=== PATIENT | female | born 1990 | race Caucasian/White ===

== ENCOUNTER 2019-03-30 17:45 | Emergency (ER) | payer MEDICAID, OTHER ==
[2019-03-30 17:53] VITALS: BP 120/76
[2019-03-30] MEDS ORDERED: HYDROCODONE/APAP 5/325 TAB PO ONE (18:00)
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
== END 2019-03-30 18:42 | disposition home or self-care (01) ==
DX: T22.10XA Burn of first degree of shoulder and upper limb, except wrist and hand, unspecified site, initial encounter (principal); T23.172A Burn of first degree of left wrist, initial encounter; T21.12XA Burn of first degree of abdominal wall, initial encounter; T31.0 Burns involving less than 10% of body surface; X10.2XXA Contact with fats and cooking oils, initial encounter; Y93.G3 Activity, cooking and baking